=== PATIENT | male | born 1970 | race Caucasian/White ===

== ENCOUNTER 2021-01-21 20:52 | Inpatient (IN) | payer OTHER ==
[~2021-01-21] VITALS: Ht 170.2 cm; Wt 87.6 kg
[2021-01-21] MEDS ORDERED: LISI-893 PO (21:26)
[2021-01-21] MEDS ORDERED: METF-960 PO (21:26)
[2021-01-21] MEDS ORDERED: DIPH25CA85 PO (21:26)
[2021-01-21] MEDS ORDERED: ALBU8HFA IH (21:26)
[2021-01-21] MEDS ORDERED: LOPE-202 PO (21:26)
[2021-01-21] MEDS ORDERED: PRED20 PO (21:26)
[2021-01-21] MEDS ORDERED: ACET-3385 PO (21:26)
[2021-01-21 21:53] LABS: COVID AG,FIA SOURCE NASOPHARYNGEAL
[2021-01-21 22:10] LABS: EOSINOPHILS % (AUTO) 0 % (1.0-6.0); HEMATOCRIT 38.4 % (41-53); HEMOGLOBIN 12.7 g/dL (13.5-17.5); LYMPHOCYTES # (AUTO) 0.4 K/uL (1.0-4.8); LYMPHOCYTES % (AUTO) 9.6 % (22.0-44.0); MEAN CORPUSCULAR HEMOGLOBIN 31.2 pg (26.0-34.0); MEAN CORPUSCULAR VOLUME 95 fL (80-100); MONOCYTES # (AUTO) 0.2 K/uL (0.1-1.0); MONOCYTES % (AUTO) 5.9 % (2.0-9.0); NEUTROPHILS # (AUTO) 3.4 K/uL (1.8-7.7); NEUTROPHILS % (AUTO) 84.5 % (40.0-70.0); PLATELET COUNT (AUTO) 175 K/uL (150-450); RED BLOOD CELL COUNT(AUTO) 4.05 MIL/uL (4.50-5.90); RED CELL DISTRIBUTION WIDTH 13.4 % (11.5-14.5)
[2021-01-21 22:30] LABS: ALBUMIN 3.1 g/dL (3.4-5.0); BILIRUBIN,TOTAL 0.3 mg/dL (0.1-1.0); CALCIUM, TOTAL 8.1 mg/dL (8.8-10.5); CREATININE 1.76 mg/dL (0.60-1.30); POTASSIUM 4.4 mmol/L (3.5-5.1)
[2021-01-21] MEDS ORDERED: CefTRIAXone 1 GM/DEXTROSE 50 ML IV ONE (22:45)
[2021-01-21] MEDS ORDERED: DOXYCYCLINE HYCLATE 100 MG in DEXTROSE 5%-WATER 100 ML IV ONE (22:45)
[2021-01-21] MEDS ORDERED: 0.9% SODIUM CHLORIDE 10 ML SYRINGE IVP PRN (23:00)
[2021-01-21] MEDS ORDERED: INSULIN REGULAR, HUMAN 100 UNITS/ML IVP ONE (23:00)
[2021-01-21] MEDS ORDERED: DEXTROSE 50%-WATER 25 GM/50 ML SYRINGE IVP PRN (23:00)
[2021-01-21] MEDS ORDERED: DEXAMETHASONE SOD PHOS 4 MG/ML 5 ML VIAL IM ONE (23:00)
[2021-01-21] MEDS ORDERED: ACETAMINOPHEN 325 MG TABLET PO PRN (23:00)
[2021-01-21] MEDS ORDERED: ONDANSETRON HCL 4 MG/2 ML VIAL IVP PRN ×2 (23:00)
[2021-01-21] MEDS ORDERED: INSULIN GLARGINE,HUM.REC.ANLOG 100 UNITS/ML SQ SCH (23:00)
[2021-01-21] MEDS ORDERED: REMDESIVIR 200 MG in SODIUM CHLORIDE 0.9% 250 ML IV ONE (23:15)
[2021-01-21 23:35] LABS: LACTIC ACID 2.8 mmol/L (0.4-2.0)
[2021-01-21] MEDS: SODIUM CHLORIDE 0.9% 1,000 ML IV SCH (23:38)
[2021-01-22 01:20] LABS: GLUCOSE,POINT OF CARE 358 MG/DL (70-110)
[2021-01-22 01:45] VITALS: BP 125/86
[2021-01-22 02:29] LABS: ABG A-A DIFF O2 85.5 mmHg (10-20.0); ABG BASE EXCESS -2.8 mmol/L (-2.0-3.0); ABG CARBOXYHEMOGLOBIN 0.4 % (0.0-1.5); ABG HCO3 22.4 mmol/L (22.0-26.0); ABG METHEMOGLOBIN 0.2 % (0.0-1.5); ABG OXYGEN CONTENT 17.4 mL/dL (15.0-23.0); ABG OXYGEN SATURATION 93.7 % (95.0-98.0); ABG OXYHEMOGLOBIN 93.1 % (94.0-100.0); ABG PCO2 37 mmHg (35-45); ABG PH 7.397 (7.35-7.450); ABG TOTAL HEMOGLOBIN 13.3 G/dL (12.0-18.0); SOURCE, BLOOD GAS ARTERIAL; TEMPERATURE, FAHRENHEIT, BG 98.3 FAHREN (96.0-98.6)
[2021-01-22 02:30] LABS: O2 DEVICE,BLOOD GAS CANNULA (ROOM AIR); SITE, BLOOD GAS RT RADIAL
[2021-01-22 04:03] VITALS: BP 127/75
[2021-01-22] MEDS ORDERED: PNEUMOCOCCAL VACCINE POLYVALENT 0.5 ML VIAL [PPSV23] IM. ONE (04:15)
[2021-01-22] MEDS: INSULIN LISPRO 100 UNITS/ML SQ PRN ×4 (05:56→21:27)
[2021-01-22] MEDS ORDERED: INSULIN LISPRO 100 UNITS/ML SQ ONE (06:00)
[2021-01-22 06:13] LABS: CREATININE 1.47 mg/dL (0.60-1.30); POTASSIUM 4.7 mmol/L (3.5-5.1)
[2021-01-22 06:17] LABS: GLUCOMETER DEV NAME(LOC) 5S.1; GLUCOSE,POINT OF CARE 473 MG/DL (70-110)
[2021-01-22 07:55] VITALS: BP 121/75
[2021-01-22] MEDS: DOXYCYCLINE HYCLATE 100 MG in DEXTROSE 5%-WATER 100 ML IV SCH ×2 (08:11→20:08)
[2021-01-22] MEDS: FAMOTIDINE 20 MG TABLET PO SCH (08:11)
[2021-01-22] MEDS: DOCUSATE SODIUM 100 MG CAPSULE PO SCH ×2 (08:11→20:08)
[2021-01-22] MEDS: DEXAMETHASONE SOD PHOS 4 MG/ML VIAL IVP SCH (08:11)
[2021-01-22] MEDS: INSULIN GLARGINE,HUM.REC.ANLOG 100 UNITS/ML SQ SCH ×2 (08:13→21:28)
[2021-01-22] MEDS: HEPARIN SODIUM,PORCINE 5,000 UNITS/ML VIAL SQ SCH ×3 (08:50→23:14)
[2021-01-22 10:26] VITALS: BP 148/86
[2021-01-22] MEDS: SODIUM CHLORIDE 0.9% 1,000 ML IV SCH (11:50)
[2021-01-22 12:45] LABS: GLUCOMETER DEV NAME(LOC) 6S.1; GLUCOSE,POINT OF CARE 333 MG/DL (70-110)
[2021-01-22 19:34] LABS: GLUCOMETER DEV NAME(LOC) 6N.1; GLUCOSE,POINT OF CARE 307 MG/DL (70-110)
[2021-01-22 20:31] VITALS: BP 126/77
[2021-01-22] MEDS: CefTRIAXone 1 GM/DEXTROSE 50 ML IV SCH (21:28)
[2021-01-22 22:39] LABS: GLUCOMETER DEV NAME(LOC) 6S.1; GLUCOSE,POINT OF CARE 406 MG/DL (70-110)
[2021-01-22] MEDS: REMDESIVIR 100 MG in SODIUM CHLORIDE 0.9% 250 ML IV SCH (23:14)
[2021-01-22 23:22] VITALS: BP 134/83
[2021-01-23] MEDS: SODIUM CHLORIDE 0.9% 1,000 ML IV SCH ×2 (04:14→15:47)
[2021-01-23 04:57] VITALS: BP 129/83
[2021-01-23 05:01] LABS: AMPHET/METH SCREEN,URINE NEGATIVE (NEGATIVE); BARBITURATE SCREEN, URINE NEGATIVE (NEGATIVE); BENZODIAZEPINES SCREEN,URINE NEGATIVE (NEGATIVE); CANNABINOID SCREEN,URINE NEGATIVE (NEGATIVE); COCAINE SCREEN,URINE NEGATIVE (NEGATIVE); METHADONE SCREEN, URINE NEGATIVE (NEGATIVE); OPIATE SCREEN,URINE NEGATIVE (NEGATIVE); PHENCYCLIDINE SCREEN,URINE NEGATIVE (NEGATIVE)
[2021-01-23] MEDS: INSULIN LISPRO 100 UNITS/ML SQ PRN ×4 (05:16→20:34)
[2021-01-23 05:38] LABS: GLUCOMETER DEV NAME(LOC) 6S.1; GLUCOSE,POINT OF CARE 365 MG/DL (70-110)
[2021-01-23 06:34] LABS: ALBUMIN 2.5 g/dL (3.4-5.0); BILIRUBIN,TOTAL 0.2 mg/dL (0.1-1.0); CALCIUM, TOTAL 7.9 mg/dL (8.8-10.5); CREATININE 1.4 mg/dL (0.60-1.30); TOTAL PROTEIN, SERUM 6.1 g/dL (6.4-8.2)
[2021-01-23 08:13] VITALS: BP 126/78
[2021-01-23] MEDS: DOXYCYCLINE HYCLATE 100 MG in DEXTROSE 5%-WATER 100 ML IV SCH ×2 (08:55→20:32)
[2021-01-23] MEDS: HEPARIN SODIUM,PORCINE 5,000 UNITS/ML VIAL SQ SCH ×3 (08:56→23:13)
[2021-01-23] MEDS: DOCUSATE SODIUM 100 MG CAPSULE PO SCH ×2 (08:56→20:32)
[2021-01-23] MEDS: DEXAMETHASONE SOD PHOS 4 MG/ML VIAL IVP SCH (08:56)
[2021-01-23] MEDS: FAMOTIDINE 20 MG TABLET PO SCH (08:56)
[2021-01-23] MEDS: INSULIN GLARGINE,HUM.REC.ANLOG 100 UNITS/ML SQ SCH ×2 (09:01→20:34)
[2021-01-23 10:35] LABS: C-REACTIVE PROTEIN QUANT 5.95 mg/dL (0.00-0.30)
[2021-01-23 14:52] LABS: GLUCOMETER DEV NAME(LOC) 6S.1; GLUCOSE,POINT OF CARE 308 MG/DL (70-110)
[2021-01-23 20:39] VITALS: BP 133/79
[2021-01-23] MEDS ORDERED: INSULIN LISPRO 100 UNITS/ML SQ ONE (21:30)
[2021-01-23] MEDS: CefTRIAXone 1 GM/DEXTROSE 50 ML IV SCH (21:48)
[2021-01-23] MEDS: REMDESIVIR 100 MG in SODIUM CHLORIDE 0.9% 250 ML IV SCH (23:08)
[2021-01-23] MEDS: ZOLPIDEM TARTRATE 5 MG TABLET PO PRN (23:13)
[2021-01-23 23:35] VITALS: BP 132/77
[2021-01-23] MEDS: ACETAMINOPHEN 325 MG TABLET PO PRN (23:45)
[2021-01-24 05:05] VITALS: BP 124/72
[2021-01-24] MEDS: ACETAMINOPHEN 325 MG TABLET PO PRN (05:24)
[2021-01-24] MEDS: INSULIN LISPRO 100 UNITS/ML SQ PRN ×3 (05:34→17:42)
[2021-01-24 06:15] LABS: GLUCOMETER DEV NAME(LOC) 6N.1; GLUCOSE,POINT OF CARE 303 MG/DL (70-110)
[2021-01-24 06:16] LABS: GLUCOMETER DEV NAME(LOC) 6N.1; GLUCOSE,POINT OF CARE 448 MG/DL (70-110)
[2021-01-24 07:10] LABS: GLUCOMETER DEV NAME(LOC) 6S.1; GLUCOSE,POINT OF CARE 150 MG/DL (70-110)
[2021-01-24 07:21] LABS: BASOPHILS % (AUTO) 0.1 % (0.0-2.0); EOSINOPHILS % (AUTO) 0 % (1.0-6.0); HEMATOCRIT 35.6 % (41-53); HEMOGLOBIN 12.3 g/dL (13.5-17.5); LYMPHOCYTES # (AUTO) 1.3 K/uL (1.0-4.8); LYMPHOCYTES % (AUTO) 15.2 % (22.0-44.0); MEAN CORPUSCULAR HEMOGLOBIN 31.4 pg (26.0-34.0); MEAN CORPUSCULAR HGB CONC 34.5 G/dL (31.0-37.0); MEAN CORPUSCULAR VOLUME 91 fL (80-100); MONOCYTES # (AUTO) 0.5 K/uL (0.1-1.0); MONOCYTES % (AUTO) 5.3 % (2.0-9.0); NEUTROPHILS % (AUTO) 79.4 % (40.0-70.0); PLATELET COUNT (AUTO) 222 K/uL (150-450); RED CELL DISTRIBUTION WIDTH 13.3 % (11.5-14.5)
[2021-01-24 07:44] LABS: ALBUMIN 2.3 g/dL (3.4-5.0); BILIRUBIN,TOTAL 0.2 mg/dL (0.1-1.0); CALCIUM, TOTAL 7.7 mg/dL (8.8-10.5); CREATININE 1.43 mg/dL (0.60-1.30); TOTAL PROTEIN, SERUM 5.8 g/dL (6.4-8.2)
[2021-01-24 07:48] LABS: POTASSIUM 2.8 mmol/L (3.5-5.1)
[2021-01-24 08:03] VITALS: BP 105/66
[2021-01-24] MEDS: SODIUM CHLORIDE 0.9% 1,000 ML IV SCH ×2 (09:48→13:46)
[2021-01-24] MEDS: DOCUSATE SODIUM 100 MG CAPSULE PO SCH ×2 (09:48→21:30)
[2021-01-24] MEDS: HEPARIN SODIUM,PORCINE 5,000 UNITS/ML VIAL SQ SCH ×2 (09:48→17:38)
[2021-01-24] MEDS: POTASSIUM CHLORIDE 20 MEQ ER TABLET PO SCH (09:48)
[2021-01-24] MEDS: FAMOTIDINE 20 MG TABLET PO SCH (09:48)
[2021-01-24] MEDS: DEXAMETHASONE SOD PHOS 4 MG/ML VIAL IVP SCH (09:49)
[2021-01-24] MEDS: INSULIN GLARGINE,HUM.REC.ANLOG 100 UNITS/ML SQ SCH ×2 (09:51→21:30)
[2021-01-24] MEDS: DOXYCYCLINE HYCLATE 100 MG in DEXTROSE 5%-WATER 100 ML IV SCH ×2 (11:30→21:30)
[2021-01-24 19:45] VITALS: BP 112/64
[2021-01-24] MEDS: CefTRIAXone 1 GM/DEXTROSE 50 ML IV SCH (22:42)
[2021-01-24 23:27] LABS: GLUCOMETER DEV NAME(LOC) 6N.1; GLUCOSE,POINT OF CARE 191 MG/DL (70-110)
[2021-01-24 23:27] LABS: GLUCOMETER DEV NAME(LOC) 6S.1; GLUCOSE,POINT OF CARE 335 MG/DL (70-110)
[2021-01-24 23:27] LABS: GLUCOMETER DEV NAME(LOC) 6N.1; GLUCOSE,POINT OF CARE 264 MG/DL (70-110)
[2021-01-25] MEDS: HEPARIN SODIUM,PORCINE 5,000 UNITS/ML VIAL SQ SCH ×4 (00:03→23:21)
[2021-01-25] MEDS: REMDESIVIR 100 MG in SODIUM CHLORIDE 0.9% 250 ML IV SCH ×2 (00:04→23:20)
[2021-01-25] MEDS: ZOLPIDEM TARTRATE 5 MG TABLET PO PRN ×2 (00:05→20:32)
[2021-01-25 03:35] VITALS: BP 123/71
[2021-01-25] MEDS: SODIUM CHLORIDE 0.9% 1,000 ML IV SCH (04:48)
[2021-01-25 05:58] LABS: BASOPHILS % (AUTO) 0.1 % (0.0-2.0); EOSINOPHILS % (AUTO) 0.1 % (1.0-6.0); HEMATOCRIT 36.8 % (41-53); HEMOGLOBIN 12.3 g/dL (13.5-17.5); LYMPHOCYTES # (AUTO) 1.3 K/uL (1.0-4.8); LYMPHOCYTES % (AUTO) 18.6 % (22.0-44.0); MEAN CORPUSCULAR HGB CONC 33.4 G/dL (31.0-37.0); MEAN CORPUSCULAR VOLUME 93 fL (80-100); MONOCYTES # (AUTO) 0.6 K/uL (0.1-1.0); MONOCYTES % (AUTO) 9.1 % (2.0-9.0); NEUTROPHILS # (AUTO) 4.9 K/uL (1.8-7.7); NEUTROPHILS % (AUTO) 72.1 % (40.0-70.0); PLATELET COUNT (AUTO) 212 K/uL (150-450); RED BLOOD CELL COUNT(AUTO) 3.97 MIL/uL (4.50-5.90); RED CELL DISTRIBUTION WIDTH 13.5 % (11.5-14.5)
[2021-01-25 06:11] LABS: ALANINE AMINOTRANSFERASE 36 U/L (12-78); ALBUMIN 2.1 g/dL (3.4-5.0); ALKALINE PHOSPHATASE 71 U/L (46-116); ANION GAP 6 mmol/L (8-16); ASPARTATE AMINOTRANSFERASE 23 U/L (15-37); BILIRUBIN,TOTAL 0.2 mg/dL (0.1-1.0); CALCIUM, TOTAL 7.6 mg/dL (8.8-10.5); CARBON DIOXIDE 28 mmol/L (22-29); CHLORIDE 106 mmol/L (98-107); CREATININE 1.23 mg/dL (0.60-1.30); GLOMERULAR FILTR. RATE CALC > 60 mL/min (>60); GLUCOSE,RANDOM 216 mg/dL (70-110); POTASSIUM 4.1 mmol/L (3.5-5.1); SODIUM SERUM 140 mmol/L (136-145); TOTAL PROTEIN, SERUM 5.6 g/dL (6.4-8.2); UREA NITROGEN, BLOOD 17 mg/dL (7-18)
[2021-01-25] MEDS: INSULIN LISPRO 100 UNITS/ML SQ PRN ×4 (06:35→20:41)
[2021-01-25 07:49] VITALS: BP 120/81
[2021-01-25 08:06] LABS: GLUCOMETER DEV NAME(LOC) 6N.1; GLUCOSE,POINT OF CARE 204 MG/DL (70-110)
[2021-01-25] MEDS: POTASSIUM CHLORIDE 20 MEQ ER TABLET PO SCH (09:19)
[2021-01-25] MEDS: FAMOTIDINE 20 MG TABLET PO SCH (09:19)
[2021-01-25] MEDS: DOCUSATE SODIUM 100 MG CAPSULE PO SCH ×2 (09:19→20:27)
[2021-01-25] MEDS: DEXAMETHASONE SOD PHOS 4 MG/ML VIAL IVP SCH (09:20)
[2021-01-25] MEDS: DOXYCYCLINE HYCLATE 100 MG in DEXTROSE 5%-WATER 100 ML IV SCH ×2 (09:21→20:28)
[2021-01-25] MEDS: INSULIN GLARGINE,HUM.REC.ANLOG 100 UNITS/ML SQ SCH ×2 (09:22→20:41)
[2021-01-25 13:41] LABS: GLUCOMETER DEV NAME(LOC) 6S.1; GLUCOSE,POINT OF CARE 275 MG/DL (70-110)
[2021-01-25 18:54] LABS: GLUCOMETER DEV NAME(LOC) 6N.1; GLUCOSE,POINT OF CARE 321 MG/DL (70-110)
[2021-01-25 20:20] VITALS: BP 134/78
[2021-01-25] MEDS: CefTRIAXone 1 GM/DEXTROSE 50 ML IV SCH (21:57)
[2021-01-26] MEDS: SODIUM CHLORIDE 0.9% 1,000 ML IV SCH ×2 (03:29→03:42)
[2021-01-26 03:51] VITALS: BP 133/87
[2021-01-26 03:53] LABS: GLUCOMETER DEV NAME(LOC) 6S.1; GLUCOSE,POINT OF CARE 351 MG/DL (70-110)
[2021-01-26] MEDS: INSULIN LISPRO 100 UNITS/ML SQ PRN ×4 (06:24→21:31)
[2021-01-26 07:02] LABS: GLUCOMETER DEV NAME(LOC) 6S.1; GLUCOSE,POINT OF CARE 188 MG/DL (70-110)
[2021-01-26 08:11] VITALS: BP 118/77
[2021-01-26] MEDS ORDERED: DEXA4 PO (08:27)
[2021-01-26] MEDS ORDERED: DEXA1 PO (08:29)
[2021-01-26] MEDS ORDERED: FAMO20 PO (08:32)
[2021-01-26] MEDS ORDERED: DOCU-275 PO (08:32)
[2021-01-26] MEDS ORDERED: INSLAN SQ (08:32)
[2021-01-26] MEDS: HEPARIN SODIUM,PORCINE 5,000 UNITS/ML VIAL SQ SCH ×2 (09:23→16:49)
[2021-01-26] MEDS: DEXAMETHASONE 4 MG TABLET PO SCH (09:24)
[2021-01-26] MEDS: POTASSIUM CHLORIDE 20 MEQ ER TABLET PO SCH (09:24)
[2021-01-26] MEDS: DOCUSATE SODIUM 100 MG CAPSULE PO SCH ×2 (09:24→21:28)
[2021-01-26] MEDS: FAMOTIDINE 20 MG TABLET PO SCH (09:25)
[2021-01-26] MEDS: INSULIN GLARGINE,HUM.REC.ANLOG 100 UNITS/ML SQ SCH ×2 (09:32→21:30)
[2021-01-26 13:27] LABS: GLUCOMETER DEV NAME(LOC) 6N.1; GLUCOSE,POINT OF CARE 269 MG/DL (70-110)
[2021-01-26 18:30] LABS: GLUCOMETER DEV NAME(LOC) 6N.1; GLUCOSE,POINT OF CARE 293 MG/DL (70-110)
[2021-01-26 21:40] VITALS: BP 132/79
[2021-01-26 22:00] LABS: GLUCOMETER DEV NAME(LOC) 6S.1; GLUCOSE,POINT OF CARE 318 MG/DL (70-110)
[2021-01-26] MEDS ORDERED: ZOLPIDEM TARTRATE 5 MG TABLET PO ONE (22:45)
[2021-01-27] MEDS: HEPARIN SODIUM,PORCINE 5,000 UNITS/ML VIAL SQ SCH ×2 (00:26→09:45)
[2021-01-27 04:55] VITALS: BP 121/88
[2021-01-27] MEDS: INSULIN LISPRO 100 UNITS/ML SQ PRN ×2 (06:35→11:50)
[2021-01-27 08:00] VITALS: BP 133/80
[2021-01-27 09:16] LABS: GLUCOMETER DEV NAME(LOC) 6N.1; GLUCOSE,POINT OF CARE 297 MG/DL (70-110)
[2021-01-27] MEDS: DEXAMETHASONE 4 MG TABLET PO SCH (09:41)
[2021-01-27] MEDS: DOCUSATE SODIUM 100 MG CAPSULE PO SCH (09:44)
[2021-01-27] MEDS: POTASSIUM CHLORIDE 20 MEQ ER TABLET PO SCH (09:44)
[2021-01-27] MEDS: FAMOTIDINE 20 MG TABLET PO SCH (09:44)
[2021-01-27] MEDS: INSULIN GLARGINE,HUM.REC.ANLOG 100 UNITS/ML SQ SCH (09:54)
[2021-01-27 18:05] LABS: GLUCOMETER DEV NAME(LOC) 6S.1; GLUCOSE,POINT OF CARE 299 MG/DL (70-110)
== END 2021-01-27 14:05 | DRG 177 ==
LOC: EMS 20:54 → 5N 22:58 → 6S 01-22 10:00
PROVIDERS: ADMIT Internal Medicine; ATTEND Internal Medicine
PROC: XW033E5 Introduction of Remdesivir Anti-infective into Peripheral Vein, Percutaneous Approach, New Technology Group 5 (ICD-10-PCS; principal; 2021-01-22)
DX: U07.1 COVID-19 (principal); J12.82 Pneumonia due to coronavirus disease 2019; J96.91 Respiratory failure, unspecified with hypoxia; N17.9 Acute kidney failure, unspecified; E87.2 Acidosis; E87.1 Hypo-osmolality and hyponatremia; E11.65 Type 2 diabetes mellitus with hyperglycemia; I10 Essential (primary) hypertension; Z90.49 Acquired absence of other specified parts of digestive tract; Z83.3 Family history of diabetes mellitus; Z88.0 Allergy status to penicillin; E78.5 Hyperlipidemia, unspecified; E87.6 Hypokalemia; Z79.4 Long term (current) use of insulin; E66.9 Obesity, unspecified; Z68.30 Body mass index [BMI] 30.0-30.9, adult; F15.10 Other stimulant abuse, uncomplicated
CPT/HCPCS: 71045; 80048; 80053; 82805; 82962; 83605; 83880; 84132; 84484; 85025; 85379; 85651; 86140; 87040; 87426; 93005; 99291; A9575; J0696; J1100; J1644; J1815; J3490; J7030; J7050; J7060; J8540; 36415-L1; 36415-TC; U0003